=== PATIENT | female | born 1945 | race Caucasian/White ===

== ENCOUNTER 2016-03-15 14:21 | Emergency (ER) | payer OTHER ==
[2016-03-15] MEDS ORDERED: HYDROmorphONE/DILAUDID 1 MG/ML SYR IVP ONE ×2 (14:36→15:48)
[2016-03-15] MEDS ORDERED: NS 1,000 ML IV ONE (14:36)
--- NOTE | 2016-03-15 14:41 | EDPHY ---
H & P HPI/ROS: CHIEF COMPLAINT: Right-sided pain HISTORY OF PRESENT ILLNESS: Patient is a 71-year-old female with a history of chronic pain syndrome related to fibromyalgia and acute intermittent porphyria. She uses narcotics control her pain symptoms on a continuous basis including OxyContin, oxycodone and Dilaudid. The last few weeks she moved into a new apartment at [facility] that is at the end of the row and is loud, cold and does not have a hot water currently. She states that the transition has been very difficult for her in that she is experiencing an exacerbation of her chronic symptoms. She states that she has pain in her right lower quadrant that then radiates through her entire right-sided body including or arm, leg and head. She has a history of appendectomy. This is typical of her chronic pain syndrome. She states that her typical pain medication is not working. She has not had any weakness or numbness. She has not had a fever. She has not suffered any trauma. She was given fentanyl and Zofran by EMS and states that her pain went from an 8 to a 4. She states that typically when this happens she is able to go home after receiving IV fluids and pain medication in the emergency department. She is hopeful that this will happen today. REVIEW OF SYSTEMS: Constitutional: denies: chills, fever, recent illness, recent injury EENTM: denies: blurred vision, double vision, nose congestion Respiratory: denies: cough, shortness of breath Cardiac: denies: chest pain, irregular heart rate, lightheadedness, palpitations Gastrointestinal/Abdominal: denies: abdominal pain, diarrhea, nausea, vomiting, blood streaked stools Genitourinary: denies: dysuria, frequency, hematuria, pain Musculoskeletal: See HPI Skin: denies: lesions, rash, jaundice, bruising Neurological: denies: headache, numbness, paresthesia, tingling, dizziness, weakness Hematologic/Lymphatic: denies: blood clots, easy bleeding, easy bruising Immunologic/allergic: denies: HIV/AIDS, transplant EXAM: GENERAL: Well-appearing, well-nourished and in no acute distress. HEAD: Atraumatic, normocephalic. EYES: Pupils equal round and reactive to light, extraocular movements intact, sclera anicteric, conjunctiva are normal. ENT: TMs normal, nares patent, oropharynx clear without exudates. Moist mucous membranes. NECK: Normal range of motion, supple without lymphadenopathy or JVD. LUNGS: Breath sounds clear to auscultation bilaterally and equal. No wheezes rales or rhonchi. HEART: Regular rate and rhythm without murmurs, rubs or gallops. ABDOMEN: Soft, nontender, normoactive bowel sounds. No guarding, no rebound. No masses appreciated. BACK: No CVA tenderness, no spinal tenderness, step-offs or deformities EXTREMITIES: Normal range of motion, no pitting or edema. No clubbing or cyanosis. NEUROLOGICAL: Cranial nerves II through XII grossly intact. Normal speech, normal gait. 5/5 strength, normal movement in all extremities, normal sensation PSYCH: Normal mood, normal affect. SKIN: Warm, dry, normal turgor, no visible rashes or lesions. Source: Patient, EMS, Old records Exam Limitations: No limitations - Personal History Tetanus Vaccine Date: <10 years as of Jun 2014 - Medical/Surgical History Hx Asthma: No Hx Chronic Respiratory Disease: No Hx Diabetes: No Hx Cardiac Disease: No Hx Renal Disease: No Hx Cirrhosis: No Hx Alcoholism: No Hx HIV/AIDS: No Hx Splenectomy or Spleen Trauma: No Other PMH: fibromyalgia, appy, tonsilectomy, tubal ligation, sebaceous cyst removed, HTN, retinal bleeding rt eye, TIA vs CVA, porphyria with neuropathy - Family History Significant Family History: Hypertension - Social History Smoking Status: Former smoker Alcohol Use: Sober Drug Use: None Constitutional: Initial Vital Signs Temperature (C) 36.8 C 03/15/16 14:21 Heart Rate 78 03/15/16 14:21 Respiratory Rate 16 03/15/16 14:21 Blood Pressure 138/87 H 03/15/16 14:21 O2 Sat (%) 95 03/15/16 14:21 O2 Delivery Mode Nasal Cannula O2 (L/minute) 2 Allergies/Adverse Reactions: aspirin Allergy (Verified 07/27/15 10:59) Barbiturates Allergy (Verified 07/27/15 10:59) fluoxetine HCl [From Prozac] Allergy (Verified 07/27/15 10:59) ibuprofen Allergy (Verified 09/09/15 12:24) lisinopril Allergy (Verified 07/27/15 10:59) penicillin V potassium [From Pen-Vee K] Allergy (Verified 09/09/15 14:47) Hives Sulfa (Sulfonamide Antibiotics) Allergy (Verified 07/27/15 10:59) ERTHROMYCIN Allergy (Uncoded 07/27/15 10:59) WINE Allergy (Uncoded 07/27/15 10:59) Home Medications: Medication Instructions Recorded Verapamil [Calan 120MG (*)] 360 mg PO DAILY@17 07/24/10 Multivitamins [Multivitamin (*)] 1 each PO DAILY 07/23/13 oxyCODONE CR [Oxycontin] 20 mg PO BID 07/23/13 Promethazine HCl [Phenergan 25mg 25 mg PO Q6 PRN 06/29/14 (*)] HYDROmorphone HCL [Dilaudid 4 mg 8 mg PO DAILY PRN 03/25/15 (*)] Pregabalin [Lyrica 50mg (*)] 50 mg PO Q2D@22 07/27/15 Acetaminophen [Tylenol ES 500 mg 1,000 mg PO DAILY PRN 09/02/15 (*)] Ascorbic Acid [Vitamin C 500 mg 500 mg PO DAILY 09/02/15 (*)] Dexlansoprazole [Dexilant] 60 mg PO DAILY 09/02/15 Fluticasone Nasal [Flonase Nasal 1 sprays [place] HS 09/02/15 [place]] Herbals/Supplements -Info Only 1 ea PO DAILY 09/02/15 oxyCODONE IR [Oxycodone Ir (*)] 30 mg PO QID PRN 09/02/15 Medical Decision Making ED Course/Re-evaluation: 3:45 p.m. patient states that her pain continues. It has now flipped over to the left side of her entire body. She states that it sometimes plays this game . I will treat her with more Dilaudid and Phenergan which she states usually seem to help. 6:15 p.m. the patient feels completely better. She wishes to go home and declines further workup or testing at this time. She declines prescriptions. We discussed indications for returning. Differential Diagnosis: Partial list of the Differential diagnosis considered include but were not limited to; fibromyalgia, porphyria, anxiety and although unlikely based on the history and physical exam, I also considered electrolyte abnormality, infection, CVA, meningitis. I discussed these differential diagnoses and the plan with the patient as well as the usual and expected course. The patient understands that the diagnosis is provisional and that in medicine we are not always correct and that further workup is often warranted. Usual and customary warnings were given. All of the patient's questions were answered. The patient was instructed to return to the emergency department should the symptoms at all worsen or return, otherwise to followup with the physician as we discussed. - Data Points Laboratory Results: Laboratory Results 03/15/16 14:31 03/15/16 14:31 03/15/16 14:31 WBC 8.25 10^3/uL (3.80-9.50) RBC 5.00 10^6/uL (4.18-5.33) Hgb 14.7 g/dL (12.6-16.3) Hct 43.7 % (38.0-47.0) MCV 87.4 fL (81.5-99.8) MCH 29.4 pg (27.9-34.1) MCHC 33.6 g/dL (32.4-36.7) RDW 12.6 % (11.5-15.2) Plt Count 227 10^3/uL (150-400) MPV 12.8 H fL (8.7-11.7) Neut % (Auto) 41.3 % (39.3-74.2) Lymph % (Auto) 46.8 H % (15.0-45.0) Ogle % (Auto) 6.7 % (4.5-13.0) Eos % (Auto) 4.7 % (0.6-7.6) Baso % (Auto) 0.4 % (0.3-1.7) Nucleat RBC Rel Count 0.0 % (0.0-0.2) Absolute Neuts (auto) 3.41 10^3/uL (1.70-6.50) Absolute Lymphs (auto) 3.86 H 10^3/uL (1.00-3.00) Absolute Monos (auto) 0.55 10^3/uL (0.30-0.80) Absolute Eos (auto) 0.39 10^3/uL (0.03-0.40) Absolute Basos (auto) 0.03 10^3/uL (0.02-0.10) Absolute Nucleated RBC 0.00 10^3/uL (0-0.01) Immature Gran % 0.1 % (0.0-1.1) Immature Gran # 0.01 10^3/uL (0.00-0.10) Sodium 141 mEq/L (134-144) Potassium 4.3 mEq/L (3.5-5.2) Chloride 102 mEq/L (97-110) Carbon Dioxide 27 mEq/l (22-31) Anion Gap 12 mEq/L (8-16) BUN 27 H mg/dL (7-23) Creatinine 1.3 H mg/dL (0.6-1.0) Estimated GFR 41 Glucose 89 mg/dL (70-100) Calcium 9.1 mg/dL (8.5-10.4) Total Bilirubin 0.4 mg/dL (0.1-1.4) Conjugated Bilirubin 0.4 mg/dL (0.0-0.5) Unconjugated Bilirubin 0.0 mg/dL (0.0-1.1) AST 31 IU/L (14-46) ALT 31 IU/L (9-52) Alkaline Phosphatase 148 H IU/L (38-126) Total Protein 6.6 g/dL (6.3-8.2) Albumin 4.0 g/dL (3.5-5.0) Lipase 147.0 IU/L (23-300) Medications Given: Discontinued Medications Hydromorphone HCl (Dilaudid) 1 mg IVP EDNOW ONE Stop: 03/15/16 14:37 Last Admin: 03/15/16 14:59 Dose: 1 mg Hydromorphone HCl (Dilaudid) 1 mg IVP EDNOW ONE Stop: 03/15/16 15:49 Last Admin: 03/15/16 15:55 Dose: 1 mg Sodium Chloride (Ns) 1,000 mls @ 0 mls/hr IV ONCE ONE PRN Reason: Wide Open Stop: 03/15/16 14:37 Last Admin: 03/15/16 14:59 Dose: 1,000 mls Promethazine HCl (Phenergan Injection) 25 mg IVP EDNOW ONE Stop: 03/15/16 15:49 Last Admin: 03/15/16 15:55 Dose: 25 mg Departure - Departure Disposition: Home, Routine, Self-Care Clinical Impression: Fibromyalgia Porphyria Qualifiers: Porphyria type: acute intermittent Qualifier Code: (E80.21) Acute intermittent (hepatic) porphyria Condition: Fair Instructions: Fibromyalgia (ED), Acute Porphyria (ED) Referrals: Mariaa Negrete MD [Primary Care Provider] - As per Instructions
[2016-03-15 14:46] LABS: % IMMATURE GRANULYOCYTES 0.1 % (0.0-1.1); ABSOLUTE IMMATURE GRANULOCYTES 0.01 10^3/uL (0.00-0.10); ADD DIFF? NO; ADD MORPH? NO; ADD SCAN? NO; ATYPICAL LYMPHOCYTE FLAG 0 (0-99); FRAGMENT RBC FLAG 0 (0-99); HEMATOCRIT 43.7 % (38.0-47.0); HEMOGLOBIN 14.7 g/dL (12.6-16.3); LEFT SHIFT FLG 0 (0-99); LIPEMIA HEMOLYSIS FLAG 80 (0-99); MEAN CELL HEMOGLOBIN 29.4 pg (27.9-34.1); MEAN CELL HEMOGLOBIN CONCENTR. 33.6 g/dL (32.4-36.7); MEAN CELL VOLUME 87.4 fL (81.5-99.8); MEAN PLATELET VOLUME 12.8 fL (8.7-11.7); PLATELET CLUMPS FLAG 0 (0-99); PLATELET COUNT 227 10^3/uL (150-400); RED CELL DISTRIBUTION WIDTH 12.6 % (11.5-15.2)
[2016-03-15 14:51] LABS: ALANINE AMINOTRANSFERASE 31 IU/L (9-52); ALKALINE PHOSPHATASE 148 IU/L (38-126); ANION GAP 12 mEq/L (8-16); ASPARTATE AMINOTRANSFERASE 31 IU/L (14-46); BILIRUBIN,TOTAL 0.4 mg/dL (0.1-1.4); BILIRUBIN-CONJUGATED 0.4 mg/dL (0.0-0.5); CALCIUM 9.1 mg/dL (8.5-10.4); CARBON DIOXIDE 27 mEq/l (22-31); CHLORIDE 102 mEq/L (97-110); CREATININE 1.3 mg/dL (0.6-1.0); GLOMERULAR FILTRATION RATE 41; GLUCOSE 89 mg/dL (70-100); POTASSIUM 4.3 mEq/L (3.5-5.2); SODIUM 141 mEq/L (134-144); TOTAL PROTEIN 6.6 g/dL (6.3-8.2)
[2016-03-15] MEDS ORDERED: PROMETHAZINE HCL 25 MG/ML VIAL IVP ONE (15:48)
[2016-03-15 17:06] VITALS: RESP 16
[2016-03-15 18:30] VITALS: BP 136/75; PULSE 70; TEMP 97.9; O2SAT 96
[2016-03-15 18:51] LABS: COLOR PALE YELLOW; LEUKOCYTE ESTERASE,URINE NEGATIVE (NEGATIVE); NITRITE,URINE NEGATIVE (NEGATIVE)
== END 2016-03-15 19:17 | disposition home or self-care (01) ==
LOC: EDUNIT#
DX: M79.7 Fibromyalgia (principal); E80.21 Acute intermittent (hepatic) porphyria; I10 Essential (primary) hypertension; Z87.891 Personal history of nicotine dependence
CPT/HCPCS: 96361; 96374; 96375; 96376; 99284; J1170; J2550

== ENCOUNTER → 2016-05-13 | Outpatient (CLI) | payer OTHER | LOC: BMCIMAGING 09:55 | PROVIDERS: ATTEND Registered Nurse | DX: M25.811 Other specified joint disorders, right shoulder (principal); M25.812 Other specified joint disorders, left shoulder ==

== ENCOUNTER → 2016-06-29 | Outpatient (CLI) | payer OTHER, MEDICAID | LOC: BMCIMAGING 13:34 | PROVIDERS: ATTEND Physician Assistant | DX: M25.561 Pain in right knee (principal); M25.562 Pain in left knee ==

== ENCOUNTER → 2016-07-13 | Outpatient (CLI) | payer OTHER, MEDICAID | LOC: FIMAGING 07:45 | PROVIDERS: ATTEND Physician Assistant | DX: M23.311 Other meniscus derangements, anterior horn of medial meniscus, right knee (principal); M22.41 Chondromalacia patellae, right knee; M25.461 Effusion, right knee ==

== ENCOUNTER → 2016-11-03 | Outpatient (CLI) | payer OTHER, MEDICAID ==
[~2016-11-03] MED LIST: REGADENOSON 0.4 MG/5 ML SYR IVP ONE
--- NOTE | 2016-11-03 15:11 | CPR ---
[f rep st] NONINVASIVE CARDIAC PROCEDURE REPORT DATE OF PROCEDURE: 11/03/2016 PROCEDURE: Nuclear Lexiscan stress test. This is an outpatient procedure. ORDERING PHYSICIAN: Mariaa Negrete MD REASON FOR TEST: Exertional chest pain. REST PORTION: Resting EKG shows a sinus rhythm with inferior changes. No other ischemic changes noted. Resting rate is 74, resting blood pressure 144/90 , oxygen saturation 98%. STRESS PORTION: Lexiscan was injected rapidly, followed by saline flush. Cardiolite was then injected, followed by saline flush. She did experience chest tightness, shortness of breath which progressed to jaw pain. There were no EKG changes. Blood pressure 138/80, peak heart rate 95, oxygen saturation 99 %. Caffeine was given, which did start to relieve the discomfort. RECOVERY: Blood pressure 142/80, heart rate 91, oxygen saturation 98%. Caffeine was continued with relief of pain. Recovery EKG is unchanged. At this time, she is stable for nuclear imaging. /[id number]/MODL MTDD
== END ==
LOC: FIMAGING 12:40
PROVIDERS: ATTEND Internal Medicine
DX: R07.89 Other chest pain (principal)
CPT/HCPCS: 78452; 93017; A9500; J2785

== ENCOUNTER → 2016-12-10 | Outpatient (CLI) | payer OTHER, MEDICAID | LOC: FCPNEURO 23:22 | PROVIDERS: ATTEND Internal Medicine Sleep Medicine | DX: G47.33 Obstructive sleep apnea (adult) (pediatric) (principal); G47.31 Primary central sleep apnea ==

== ENCOUNTER 2017-01-03 07:50 | Observation (INO) | payer OTHER, MEDICAID ==
--- NOTE | 2017-01-03 07:59 | EDPHY ---
H & P Time Seen by Provider: 01/03/17 07:50 HPI/ROS: CHIEF COMPLAINT: Right arm weakness HISTORY OF PRESENT ILLNESS: Patient arrives by EMS as a stroke alert. She has a history of porphyria since 21 years old, and had symptoms similar to this in the past with porphyria exacerbation. She was last known to have normal right arm strength at midnight. At 1:00 a.m. and noticed severe pain in her right arm which is typical of porphyria exacerbation, and by 2:00 a.m. she had significant weakness. She took additional oral Dilaudid called ambulance who brought her in as a stroke alert because of right arm weakness and drift. Symptoms are severe. Associated with right leg weakness. These are all typical of her porphyria exacerbations. REVIEW OF SYSTEMS: Eye: no change in vision ENT: no sore throat Cardiac: no chest pain or syncope Pulmonary: no cough or SOB Abdomen: No vomiting or diarrhea, having a little bit of abdominal cramping which again is typical for porphyria exacerbation. Musculoskeletal: HPI, no neck pain Skin: no rash Neuro: no headache Constitutional: no fever : no urinary symptoms A comprehensive 10 point review of systems is otherwise negative aside from elements mentioned in the history of present illness. PAST MEDICAL HISTORY: Porphyria, hypertension, home oxygen at night, fibromyalgia Family history: Positive for porphyria. Social history: Primary care is Mariaa Negrete at [facility] General Appearance: Alert and conversant, cooperative. Eyes: No scleral icterus. ENT, Mouth: Normal mucous membranes. Respiratory: Normal respiratory effort, breath sounds equal, lungs are clear to auscultation. Cardiovascular: Regular rate and rhythm. Radial pulse present in the right wrist. Gastrointestinal: Abdomen is soft and non tender. Neurological: Alert and oriented x3. Normally conversant. Face symmetric. Right arm weakness. She can bend her left knee and raise her left heel off the bed but can't lift her right heel off the bed. She can only bend her right knee couple of degrees but she can move the toes of both feet. Normal sensation in both feet and both hands. Skin: Warm and dry, no rashes. Musculoskeletal: No peripheral edema and no joint swelling. No spine tenderness. Psychiatric: Not agitated. Emergency Department course/MDM: CT shows no hemorrhage or subacute stroke per Dr. Marsella at 8:22 a.m. Patient presents with almost 8 hours since last known normal at midnight. She is not a candidate for IV Activase even if this were a diagnosis of ischemic stroke. CT angiography is immediately performed. She will need to be admitted to the hospital for further evaluation and treatment, but I think the most likely thing is typical exacerbation of her porphyria. Adriano 846am for Tien Parada will consult. Dilaudid 1 mg IV for pain. 900: negative for large vessel occlusion on CTA per [place]. Parada in ED to see patient. Smoking Status: Former smoker Constitutional: Initial Vital Signs Temperature (C) 36.6 C 01/03/17 08:12 Heart Rate 78 01/03/17 08:12 Respiratory Rate 18 01/03/17 08:12 Blood Pressure 161/87 H 01/03/17 08:12 O2 Sat (%) 95 01/03/17 08:12 O2 Delivery Mode Room Air Allergies/Adverse Reactions: aspirin Allergy (Verified 07/27/15 10:59) Barbiturates Allergy (Verified 07/27/15 10:59) fluoxetine HCl [From Prozac] Allergy (Verified 07/27/15 10:59) ibuprofen Allergy (Verified 09/09/15 12:24) lisinopril Allergy (Verified 07/27/15 10:59) penicillin V potassium [From Pen-Vee K] Allergy (Verified 09/09/15 14:47) Hives Sulfa (Sulfonamide Antibiotics) Allergy (Verified 07/27/15 10:59) ERTHROMYCIN Allergy (Uncoded 07/27/15 10:59) WINE Allergy (Uncoded 07/27/15 10:59) Home Medications: Medication Instructions Recorded Verapamil [Calan 120MG (*)] 360 mg PO DAILY@07/24/10 Multivitamins [Multivitamin (*)] 1 each PO DAILY 07/23/13 oxyCODONE CR [Oxycontin] 20 mg PO BID 07/23/13 Promethazine HCl [Phenergan 25mg 25 mg PO Q6 PRN 06/29/14 (*)] HYDROmorphone HCL [Dilaudid 4 mg 8 mg PO DAILY PRN 03/25/15 (*)] Pregabalin [Lyrica 50mg (*)] 50 mg PO Q2D@07/27/15 Acetaminophen [Tylenol ES 500 mg 1,000 mg PO DAILY PRN 09/02/15 (*)] Ascorbic Acid [Vitamin C 500 mg 500 mg PO DAILY 09/02/15 (*)] Dexlansoprazole [Dexilant] 60 mg PO DAILY 09/02/15 Fluticasone Nasal [Flonase Nasal 1 sprays [place]ARE HS 09/02/15 [place]] Herbals/Supplements -Info Only 1 ea PO DAILY 09/02/15 oxyCODONE IR [Oxycodone Ir (*)] 30 mg PO QID PRN 09/02/15 Medical Decision Making - Diagnostics EKG Interpretation: 12-lead EKG interpreted by me; official reading is in trace master. My interpretation is sinus rhythm rate 77 with inferior Q-waves noted. Imaging Results: Imaging Impressions Chest X-Ray 01/03/17 07:58 Impression: Stable and normal. Head CT 01/03/17 07:58 Impression: 1. No acute abnormalities. 2. Left subinsular remote infarct. 3. Mild chronic small vessel ischemic changes in the supratentorial white matter. Dr. Peralta discussed these findings by telephone with YIN ALFORD on 2016 at 0822 hours. - Data Points Laboratory Results: Laboratory Results 01/03/17 08:00 01/03/17 01/03/17 08:00 07:55 POC Hgb 13.9 gm/dL gm/dL (12.6-16.3) POC Hct 41 % % (38-47) POC Sodium 143 mEq/L mEq/L (134-144) Sodium 143 mEq/L mEq/L (134-144) POC Potassium 3.4 mEq/L mEq/L (3.3-5.0) Potassium 3.5 mEq/L mEq/L (3.5-5.2) POC Chloride 103 mEq/L mEq/L (97-110) Chloride 103 mEq/L mEq/L (97-110) Carbon Dioxide 26 mEq/l mEq/l (22-31) Anion Gap 14 mEq/L mEq/L (8-16) POC BUN 23 mg/dL mg/dL (7-23) BUN 23 mg/dL mg/dL (7-23) Creatinine 1.1 mg/dL H mg/dL (0.6-1.0) POC Creatinine 1.2 mg/dL H mg/dL (0.6-1.0) Estimated GFR 49 Glucose 110 mg/dL H mg/dL (70-100) POC Glucose 106 mg/dL H mg/dL (70-100) Calcium 9.0 mg/dL mg/dL (8.5-10.4) Troponin I < 0.012 ng/mL ng/mL (0.000-0.034) Medications Given: Discontinued Medications Hydromorphone HCl (Dilaudid) 1 mg IVP EDNOW ONE Stop: 01/03/17 08:40 Last Admin: 01/03/17 08:45 Dose: 1 mg Point of Care Test Results: 01/03/17 07:55 POC Sodium 143 POC Potassium 3.4 POC Chloride 103 POC BUN 23 POC Creatinine 1.2 H POC Glucose 106 H Departure - Departure Disposition: [facility] Inpatient Acute Clinical Impression: Right arm weakness, Right leg weakness Porphyria Qualifiers: Porphyria type: unspecified porphyria Qualified Code(s): E80.20 - Unspecified porphyria Condition: Good
[2017-01-03] MEDS ORDERED: IOPAMIDOL (ISOVUE 370) 100 ML BTL IV ONE (08:00)
--- NOTE | 2017-01-03 08:35 | CPEKG ---
Heart Rate: 77 RR Interval: 779 P-R Interval: 168 QRSD Interval: 90 QT Interval: 404 QTC Interval: 458 P [place]: 80 QRS [place]: 11 T Wave [place]: 54 EKG Severity - BORDERLINE ECG - EKG Impression: SINUS RHYTHM EKG Impression: BORDERLINE INFERIOR Q WAVES Electronically Signed By: Colton Falcon 03-Jan-2017 08:36:51
--- NOTE | 2017-01-03 08:35 | CPEKG ---
Heart Rate: 77 RR Interval: 779 P-R Interval: 168 QRSD Interval: 90 QT Interval: 404 QTC Interval: 458 P [place]: 80 QRS [place]: 11 T Wave [place]: 54 EKG Severity - BORDERLINE ECG - EKG Impression: SINUS RHYTHM EKG Impression: BORDERLINE INFERIOR Q WAVES Electronically Signed By: Colton Falcon 03-Jan-2017 08:36:51
[2017-01-03] MEDS ORDERED: HYDROmorphONE/DILAUDID 1 MG/ML INJ IVP ONE (08:39)
[2017-01-03] MEDS ORDERED: ACETAMINOPHEN 325 MG TAB PO PRN (09:03)
[2017-01-03] MEDS ORDERED: HYDROmorphONE/DILAUDID 1 MG/ML INJ IVP PRN (09:03)
[2017-01-03] MEDS ORDERED: ONDANSETRON DISINTEGRATING 4 MG TAB PO PRN (09:03)
[2017-01-03] MEDS ORDERED: ONDANSETRON 4 MG/2 ML VIAL IVP PRN (09:03)
[2017-01-03] MEDS ORDERED: NS 1,000 ML IV ONE (09:03)
[2017-01-03 09:15] LABS: PLATELET COUNT 182 10^3/uL (150-400)
[2017-01-03 10:26] LABS: INR 1.03 (0.83-1.16); PROTIME(PATIENT) 13.4 SEC (12.0-15.0)
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
[2017-01-03] MEDS: HYDROmorphone HCL/NS/PF 0.4 MG/2 ML SYR IVP PRN ×4 (11:37→21:06)
[2017-01-03] MEDS ORDERED: PROMETHAZINE HCL 25 MG TAB PO PRN (11:46)
[2017-01-03] MEDS ORDERED: SYSTANE ULTRA EACHEYE PRN (11:46)
[2017-01-03] MEDS ORDERED: EYE DRP EACHEYE PRN (11:46)
[2017-01-03] MEDS ORDERED: D50W 25 GM/50 ML SYR IVP SCH (12:00)
[2017-01-03] MEDS: D50W 25 GM/50 ML VIAL IVP SCH ×2 (12:52→18:04)
[2017-01-03] MEDS: D5W NS 1,000 ML IV SCH (12:52)
[2017-01-03] MEDS ORDERED: ALTEPLASE 2 MG VIAL IVP PRN (14:06)
[2017-01-03] MEDS ORDERED: CALCIUM CARBONATE 500 MG CHEWABLE TAB PO PRN (14:07)
--- NOTE | 2017-01-03 15:10 | GCON ---
[f rep st] CONSULTATION NEUROLOGY CONSULT REFERRING PHYSICIAN: Lexi Parada MD CHIEF COMPLAINT: Right-sided pain and weakness. 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 Over the last ensuing 50 years or so, she has had multiple attacks per year that are fairly stereotyped. They always begin with abdominal pain and then she typically gets right-sided pain in the face, arm, and leg which progresses to motor dysfunction. On rare occasion, she will get the identical syndrome starting with abdominal pain, but having allodynia and weakness on the left side. She has right-sided symptoms the vast majority of time. She has 4 to 5 of these events per year. Last night, she began with a stereotyped episode of abdominal pain progressing to hypersensitivity on the right side, then spontaneous pain, and finally decreased motor function. She is able to typically self treat these at home, sometimes with increased carbohydrate, but if it gets more significant, she comes into the hospital for IV fluids, IV pain medication, and intravenous glucose, which resolves the symptoms in about 24 hours. In the emergency department, she had a head CT and a CTA of the head and neck. I reviewed these studies. The head CT shows a chronic possible area of infarct in the left subinsular region. She states she has had a stroke many years ago. CT angiography of the head and neck showed no significant vascular occlusion. Her symptoms are now resolving with IV Dilaudid, fluids, and she will be getting glucose shortly. Her labs do not show a white count. She has some chronic renal insufficiency. Creatinine is 1.1 to 1.2. For past medical history, social history, family history, home medications, and allergies, see Dr. Parada's history and physical. PHYSICAL EXAMINATION: VITAL SIGNS: Blood pressure is 131/98, temperature is 36.6, heart rate 77, respirations 20. GENERAL: In no acute distress, very pleasant. NEUROLOGIC: Higher mental function is normal. No aphasia or cognitive abnormalities. Bulbar exam reveals some electrical like paresthesias when I touch the right side of her face in a lower motor neuron distribution. Otherwise, there are no other cranial nerve abnormalities. On motor exam, there were inconsistent findings. Her motor exam appeared to fluctuate with effort and/or pain. She had difficulty activating the right arm and right leg. However, at other times she could activate fairly briskly. Overall, there was some right-sided motor dysfunction. On sensory exam, she states there are some subjective paresthesias and allodynia on the right side, which is rapidly improving now. Coordination is normal on the left side. IMPRESSION/PLAN: 1. Outside diagnosis of porphyria. 2. Presumed acute porphyria attack with neurologic symptoms. The patient states she has had approximately 150 + stereotyped episodes identical to the presenting one today. She has had extensive workups in the past including neuroimaging which shows no significant abnormalities with these events. She is here mainly for IV fluids, IV pain medication, and glucose, which we are treating her with. She states she will be better in 24 hours. Certainly, her history would be consistent with an acute attack of porphyria with abdominal pain and neurologic symptoms. The neurologic symptoms tend to be an acute peripheral neuropathy type mechanism based on the literature review. I understand that Internal Medicine has spoken to Hematology if there are any other treatments indicated for this condition. I am reassured by her negative CT angiography of the head and neck and negative head CT in terms of acute findings. There was no hemorrhage or other acute findings. I think we can proceed with the treatment plan as described above and hold off on further testing now and observe her for resolution of these symptoms as she typically does. She does not wish to have any further neurologic testing at this point as well. I think that is reasonable based on the patient provided history. Thank you for this consultation. We will continue to follow this patient as needed. Please do not hesitate to call with any questions or changes in neurologic status. seventy total minutes floor time today reviewing records, imaging, and direct counseling with the patient and coordination of care. /[id number]/MODL MTDD
[2017-01-03] MEDS ORDERED: FLUTICASONE NASAL 120 SPRAYS/16 GM MDI EACHNARE SCH (21:00)
[2017-01-03] MEDS ORDERED: PROMETHAZINE HCL 25 MG TAB PO SCH (21:00)
[2017-01-04] MEDS: D50W 25 GM/50 ML VIAL IVP SCH ×2 (00:02→05:20)
[2017-01-04] MEDS: D5W NS 1,000 ML IV SCH (00:02)
[2017-01-04] MEDS: HYDROmorphone HCL/NS/PF 0.4 MG/2 ML SYR IVP PRN ×2 (00:17→05:10)
[2017-01-04] MEDS ORDERED: NON-FORMULARY NEW DRUG (Esomeprazole Magnesium [Nexium] 20 MG) PO SCH (05:00)
[2017-01-04] MEDS ORDERED: PANTOPRAZOLE SODIUM 40 MG TAB PO SCH (05:00)
[2017-01-04] MEDS ORDERED: VERAPAMIL 120 MG TAB PO SCH (05:00)
[2017-01-04 05:06] LABS: PLATELET COUNT 170 10^3/uL (150-400)
[2017-01-04 07:52] VITALS: BP 107/74; PULSE 66; RESP 14; TEMP 98.2; O2SAT 90
[2017-01-04] MEDS ORDERED: Herbals/Supplements -Info Only PO SCH (09:00)
[2017-01-04] MEDS ORDERED: CYANO/VITAMIN B12 1000 MCG TAB PO SCH (09:00)
[2017-01-04] MEDS ORDERED: MULTIVITAMINS 1 EACH TAB PO SCH (09:00)
--- NOTE | 2017-01-04 12:00 | ASDISCHSUM ---
Discharge Information Plan Status:Home with No Needs Medically Cleared to Leave: Discharge Date:01/04/2017 11:33 AM CM D/C Disposition:Home, Routine, Self-Care ADT D/C Disposition:Home, Routine, Self-Care Projected Discharge Date:01/04/2017 11:33 AM Transportation at D/C: Discharge Delay Reason: Follow-Up Date:01/04/2017 11:33 AM Discharge Slot: Final Diagnosis: Placement Information Patient Contact Information Contact Name:LATONIA Relationship:Son Address:[address] City:[facility] Phone: State/Zip Code:[place] Email: Financial Information Financial Class: Primary Plan Desc:MEDICARE OUTPATIENT Primary Plan Number:[id number] Secondary Plan Desc:MEDICAID HEALTH FIRST [employer] Secondary Plan Number:[id number] Assessment Information BC CM Progress Note CM Note CM Note Notes: Pt medically stable for d/c, no CM d/c needs identified. Date Signed: 01/04/2017 12:00 PM Electronically Signed By:GERARDO Holt Intervention Information Intervention Type:*RICHARDS-Signed Date of Service:01/04/2017 09:52 AM Patient Type:Observation Staff Member:Viky Quezada Hours: Discipline: Severity: Comment:
--- NOTE | 2017-01-04 12:00 | ASDISCHSUM ---
Discharge Information Plan Status:Home with No Needs Medically Cleared to Leave: Discharge Date:01/04/2017 11:33 AM CM D/C Disposition:Home, Routine, Self-Care ADT D/C Disposition:Home, Routine, Self-Care Projected Discharge Date:01/04/2017 11:33 AM Transportation at D/C: Discharge Delay Reason: Follow-Up Date:01/04/2017 11:33 AM Discharge Slot: Final Diagnosis: Placement Information Patient Contact Information Contact Name:LATONIA Relationship:Son Address:[address] City:[facility] Phone: State/Zip Code:[place] Email: Financial Information Financial Class: Primary Plan Desc:MEDICARE OUTPATIENT Primary Plan Number:[id number] Secondary Plan Desc:MEDICAID HEALTH 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 Date Signed: 01/04/2017 12:00 PM Electronically Signed By:GERARDO Holt Intervention Information Intervention Type:*RICHARDS-Signed Date of Service:01/04/2017 09:52 AM Patient Type:Observation Staff Member:Viky Quezada Hours: Discipline: Severity: Comment:
--- NOTE | 2017-01-04 12:00 | ASDISCHSUM ---
Discharge Information Plan Status:Home with No Needs Medically Cleared to Leave: Discharge Date:01/04/2017 11:33 AM CM D/C Disposition:Home, Routine, Self-Care ADT D/C Disposition:Home, Routine, Self-Care Projected Discharge Date:01/04/2017 11:33 AM Transportation at D/C: Discharge Delay Reason: Follow-Up Date:01/04/2017 11:33 AM Discharge Slot: Final Diagnosis: Placement Information Patient Contact Information Contact Name:LATONIA Relationship:Son Address:[address] City:[facility] Phone: State/Zip Code:[place] Email: Financial Information Financial Class: Primary Plan Desc:MEDICARE OUTPATIENT Primary Plan Number:[id number] Secondary Plan Desc: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 Date Signed: 01/04/2017 12:00 PM Electronically Signed By:GERARDO Holt Intervention Information Intervention Type:*RICHARDS-Signed Date of Service:01/04/2017 09:52 AM Patient Type:Observation Staff Member:Viky Quezada Hours: Discipline: Severity: Comment:
--- NOTE | 2017-01-04 18:58 | PDDCSUM ---
Discharge Summary Discharge Summary: DISCHARGE SUMMARY FOLLOW-UP ITEMS: Schedule outpatient follow up with primary care provider DATE OF ADMISSION: 01/03/2017 DATE OF DISCHARGE: 01/04/2017 DISCHARGE DIAGNOSES: 1. Possible acute porphyria 2. Chronic kidney disease stage III 3. Chronic hypertension 4. Chronic fibromyalgia CONSULTATIONS: Neurology by Dr. Wenceslao Chauhan PROCEDURES / IMAGING: CT angiogram of the head and neck demonstrating no stenosis CHIEF COMPLAINT: Acute hemiparesis and paresthesia SUBJECTIVE: Patient is feeling well at time discharge, her symptoms have completely resolved PHYSICAL EXAM ON DISCHARGE: Systolic blood pressure is 110, heart rate 70, afebrile overnight, satting well on room air, alert awake oriented x3, no apparent distress, pain level 0 10, cranial nerves 2-12 are intact and tested comma motor strength 5/5 bilateral upper and lower extremities, sensation intact bilaterally, bowel sounds are present, abdomen is soft nontender nondistended LABS ON DISCHARGE: LDL 72, potassium 3.7, creatinine 0.9, white blood count 6200, hemoglobin 13.2 HOSPITAL COURSE BY PROBLEM: The patient presented with acute right-sided mesha paresthesia and hemiparesis, consistent with symptoms the patient has historically experienced during which she believes are acute porphyria attacks. Although there is no objective way to confirm that this was the cause of the symptoms, the patient describes a history which is very consistent with hereditary acute intermittent porphyria - she was diagnosed around the age of 21, she underwent a urine confirmatory test , she has a strong family history including her mother, grandmother, niece. The patient was treated with IV fluids, dextrose, high carbohydrate diet, and her symptoms improved. She was seen in consultation by Neurology, and Dr. Wenceslao Chauhan did not recommend any further workup. Patient did not require any hemin infusion, and she is comfortable following up with her primary care provider for both this issue as well as her underlying chronic issues. DISCHARGE MEDICATIONS: Please see official discharge medication reconciliation sheet in chart , continue home medications without any changes. DISCHARGE INSTRUCTIONS: Please follow up with Dr. Mariaa Negrete within the next several days. TIME SPENT: Greater than 30 minutes were spent on direct patient care, as well as discharge planning and preparation.
== END 2017-01-04 11:33 | disposition home or self-care (01) ==
LOC: EDUNIT# → INTOOBSV 08:48 → F3N 11:14
PROVIDERS: ADMIT Hospitalist; ATTEND Internal Medicine
DX: G81.91 Hemiplegia, unspecified affecting right dominant side (principal); R20.2 Paresthesia of skin; N18.3 Chronic kidney disease, stage 3 (moderate); I12.9 Hypertensive chronic kidney disease with stage 1 through stage 4 chronic kidney disease, or unspecified chronic kidney disease; M79.7 Fibromyalgia; K21.9 Gastro-esophageal reflux disease without esophagitis; G47.31 Primary central sleep apnea; E66.9 Obesity, unspecified; Z68.37 Body mass index [BMI] 37.0-37.9, adult; Z86.39 Personal history of other endocrine, nutritional and metabolic disease; Z86.73 Personal history of transient ischemic attack (TIA), and cerebral infarction without residual deficits; Z83.49 Family history of other endocrine, nutritional and metabolic diseases; Z88.0 Allergy status to penicillin; Z66 Do not resuscitate
CPT/HCPCS: 70450; 70496; 70498; 71010; 92523; 93005; 96374; 97161; 99285; G0378; G8978; G8979; G8980; G8996; G8997; G8998; J1170; Q9967; 82947-QW

== ENCOUNTER 2017-02-07 10:52 | Emergency (ER) | payer OTHER, MEDICAID ==
[2017-02-07 11:01] VITALS: TEMP 98.4
--- NOTE | 2017-02-07 11:32 | CPEKG ---
Heart Rate: 71 RR Interval: 845 P-R Interval: 160 QRSD Interval: 84 QT Interval: 420 QTC Interval: 457 P [place]: 65 QRS [place]: -21 T Wave [place]: 40 EKG Severity - ABNORMAL ECG - EKG Impression: SINUS RHYTHM EKG Impression: PROBABLE LEFT ATRIAL ABNORMALITY EKG Impression: INFERIOR INFARCT, OLD Electronically Signed By: Lilliana Emmanuel 07-Feb-2017 14:38:13
[2017-02-07] MEDS ORDERED: MECLIZINE HCL 25 MG TAB PO ONE (11:40)
[2017-02-07 11:50] LABS: % IMMATURE GRANULYOCYTES 0.4 % (0.0-1.1); ABSOLUTE IMMATURE GRANULOCYTES 0.03 10^3/uL (0.00-0.10); ADD DIFF? NO; ADD MORPH? NO; ADD SCAN? NO; ATYPICAL LYMPHOCYTE FLAG 0 (0-99); FRAGMENT RBC FLAG 0 (0-99); HEMATOCRIT 44.5 % (38.0-47.0); HEMOGLOBIN 14.4 g/dL (12.6-16.3); LEFT SHIFT FLG 0 (0-99); LIPEMIA HEMOLYSIS FLAG 80 (0-99); MEAN CELL HEMOGLOBIN 28.7 pg (27.9-34.1); MEAN CELL HEMOGLOBIN CONCENTR. 32.4 g/dL (32.4-36.7); MEAN CELL VOLUME 88.8 fL (81.5-99.8); MEAN PLATELET VOLUME 11.8 fL (8.7-11.7); PLATELET CLUMPS FLAG 0 (0-99); PLATELET COUNT 235 10^3/uL (150-400); RED BLOOD CELL COUNT 5.01 10^6/uL (4.18-5.33); RED CELL DISTRIBUTION WIDTH 13.1 % (11.5-15.2)
--- NOTE | 2017-02-07 11:56 | EDPHY ---
H & P Time Seen by Provider: 02/07/17 11:37 HPI/ROS: CHIEF COMPLAINT: Vertigo HISTORY OF PRESENT ILLNESS: 71-year-old female with a history of porphyria presents with vertigo. She awoke at 4:00 a.m. yesterday morning, with nausea and 1 episode of vomiting. When she tried to get out of bed, she had a severe rooming spinning sensation and was unable to walk. The spinning sensation lasted all day yesterday, worsened with head movement. She was able to read yesterday with minimal symptoms. This morning she woke up with persistent vertigo. No vomiting today. No recent head or neck trauma. She has a history of chronic right lower extremity weakness secondary to acute porphyria. Recent admission earlier this month for porphyria. CTA of the head and neck during that admission were normal. REVIEW OF SYSTEMS: Constitutional: No fever, no chills Eyes: No visual changes ENT: No sore throat Respiratory: No cough, no shortness of breath Cardiac: No chest pain Gastrointestinal: no abdominal pain Genitourinary: no dysuria Musculoskeletal: No leg pain or swelling Skin: No rash Neurological: No headache, no numbness Psychiatric: No depression Past Medical/Surgical History: Porphyria Right sided weakness Hypertension CVA Social History: Uses a walker to ambulate. Smoking Status: Former smoker Physical Exam: General Appearance: Alert, pleasant Eyes: Pupils equal and round, no conjunctival pallor or injection, horizontal nystagmus ENT, Mouth: Mucous membranes moist Neck: Normal inspection, no bruit Respiratory: Lungs are clear to auscultation Cardiovascular: Regular rate and rhythm Gastrointestinal: Abdomen is soft and nontender Neurological: Alert, oriented x3, cranial nerves II through XII intact, right- sided weakness, sensory intact to light touch, gait not assessed Skin: Warm and dry, no rash Extremities: Nontender, no pedal edema Psychiatric: Mood and affect normal Constitutional: Initial Vital Signs Temperature (C) 36.9 C 02/07/17 10:58 Heart Rate 74 02/07/17 10:58 Respiratory Rate 16 02/07/17 10:58 Blood Pressure 146/90 H 02/07/17 10:58 O2 Sat (%) 94 02/07/17 10:58 O2 Delivery Mode Room Air Allergies/Adverse Reactions: alcohol [wine] Allergy (Severe, Verified 02/07/17 10:56) Swelling/neck,face,throat/ Hives Barbiturates Allergy (Severe, Verified 02/07/17 10:56) Other-Enter Comments fluoxetine HCl [From Prozac] Allergy (Severe, Verified 02/07/17 10:56) Hallucinations aspirin Allergy (Verified 02/07/17 10:56) GI Upset erythromycin base Allergy (Verified 02/07/17 10:56) Other-Enter Comments ibuprofen Allergy (Verified 02/07/17 10:56) GI Upset latex Allergy (Verified 02/07/17 10:56) Rash/Hives lisinopril Allergy (Verified 02/07/17 10:56) Unknown penicillin V potassium [From Pen-Vee K] Allergy (Verified 02/07/17 10:56) Hives Sulfa (Sulfonamide Antibiotics) Allergy (Verified 02/07/17 10:56) Unknown Home Medications: Medication Instructions Recorded Verapamil [Calan 120MG (*)] 360 mg PO DAILY@07/24/10 Multivitamins [Multivitamin (*)] 1 each PO DAILY 07/23/13 Promethazine HCl [Phenergan 25mg 25 mg PO Q6 PRN 06/29/14 (*)] Acetaminophen [Tylenol ES 500 mg 1,000 mg PO DAILY PRN 09/02/15 (*)] Fluticasone Nasal [Flonase Nasal 1 sprays EACHNARE 09/02/15 [place]] Herbals/Supplements -Info Only 1 ea PO DAILY 09/02/15 Cyanocobalamin [Vitamin B12 (*)] 1,000 mcg PO DAILY 01/03/17 Esomeprazole Magnesium [Nexium] 20 mg PO DAILY@01/03/17 HYDROmorphone HCL [Dilaudid 4 mg 4 mg PO DAILY PRN 01/03/17 (*)] Hydrochlorothiazide [HCTZ (*)] 25 mg PO DAILY@01/03/17 Promethazine HCl [Phenergan 25mg 12.5 mg PO 01/03/17 (*)] Propylene Glycol/Peg 400 [Systane 1 drop EACHEYE Q2 PRN 01/03/17 Ultra 0.4-0.3% Eye Drp] oxyCODONE HCL [Oxycontin] 40 mg PO BID@01/03/17 oxyCODONE IR [Oxycodone Ir (*)] 10 mg PO Q6 PRN 01/03/17 Meclizine HCl [Meclizine HCl 25 mg 25 mg PO TID PRN #15 tab 02/07/17 (RX,OTC)] Nucynta 02/07/17 Medical Decision Making ED Course/Re-evaluation: This patient presents with vertigo, most likely peripheral in etiology. She has a normal neurologic and exam and no concerning signs or symptoms for central etiology of vertigo. Meclizine 25 mg orally given. Feels much better after meclizine and is ready for discharge home. Neurologic exam remains normal. Able to walk with a steady gait using her walker. I feel that she is safe and stable for discharge. Differential Diagnosis: Dizziness including but not limited to peripheral and central causes of vertigo , orthostatic causes including dehydration, and blood loss. - Data Points Laboratory Results: Laboratory Results 02/07/17 11:25 02/07/17 11:25 Medications Given: Discontinued Medications Meclizine HCl (Meclizine Hcl) 25 mg PO EDNOW ONE Stop: 02/07/17 11:41 Last Admin: 02/07/17 11:52 Dose: 25 mg Departure - Departure Disposition: Home, Routine, Self-Care Clinical Impression: Vertigo Condition: Good Instructions: Vertigo (ED) Additional Instructions: Take meclizine as needed for vertigo. Return for worsening symptoms or any concerns. Referrals: Mariaa Negrete MD [Primary Care Provider] - 1-2 days without fail Prescriptions: Meclizine HCl [Meclizine HCl 25 mg (RX,OTC)] 25 mg PO TID PRN #15 tab PRN Reason: Dizziness
[2017-02-07 12:03] LABS: ANION GAP 16 mEq/L (8-16); CALCIUM 9.8 mg/dL (8.5-10.4); CARBON DIOXIDE 27 mEq/l (22-31); CHLORIDE 103 mEq/L (97-110); CREATININE 1.1 mg/dL (0.6-1.0); GLOMERULAR FILTRATION RATE 49; GLUCOSE 99 mg/dL (70-100); POTASSIUM 4.3 mEq/L (3.5-5.2); SODIUM 146 mEq/L (134-144)
[2017-02-07 13:01] VITALS: BP 159/93; PULSE 73; RESP 15; O2SAT 92
== END 2017-02-07 13:11 | disposition home or self-care (01) ==
DX: R42 Dizziness and giddiness (principal); I10 Essential (primary) hypertension; Z86.73 Personal history of transient ischemic attack (TIA), and cerebral infarction without residual deficits; Z87.891 Personal history of nicotine dependence; Z91.040 Latex allergy status

== ENCOUNTER → 2017-06-05 | Outpatient (CLI) | payer OTHER, MEDICAID | LOC: FIMAGING 16:39 | PROVIDERS: ATTEND Nurse Practitioner Adult Health | DX: M79.661 Pain in right lower leg (principal) ==

== ENCOUNTER 2018-02-28 15:13 | Emergency (ER) | payer OTHER, MEDICAID ==
--- NOTE | 2018-02-28 15:46 | EDPHY ---
H & P Stated Complaint: c/o ongoing gerd sx/intermittent sob x 3 days, gerd meds not helping Time Seen by Provider: 02/28/18 15:46 HPI/ROS: CHIEF COMPLAINT: Chest discomfort HISTORY OF PRESENT ILLNESS: The patient presents to the ED with complaints of chest discomfort for the past 3 days not relieved with Nexium. The patient states her symptoms are fairly typical of her acid reflux however not resolved. They are not precipitated by exertion or deep breaths. She has a history of some chronic abdominal pain from porphyria. Patient had a brief episode of right upper quadrant pain which resolved several hours ago. Patient denies any fever, cough or congestion. She denies any complaints of acute numbness or weakness. She states her symptoms are moderate in nature. REVIEW OF SYSTEMS: A comprehensive 10 point review of systems is otherwise negative aside from elements mentioned in the history of present illness. Source: Patient - Personal History Tetanus Vaccine Date: <10 years as of Jun 2014 - Medical/Surgical History Hx Asthma: No Hx Chronic Respiratory Disease: No Hx Diabetes: No Hx Cardiac Disease: Yes Hx Renal Disease: No Hx Cirrhosis: No Hx Alcoholism: No Hx HIV/AIDS: No Hx Splenectomy or Spleen Trauma: No Other PMH: fibromyalgia, appy, tonsilectomy, tubal ligation, sebaceous cyst removed, HTN, retinal bleeding rt eye, CVA, porphyria with neuropathy/CHRONIC PAIN, gerd, central/sleep apnea - Social History Smoking Status: Former smoker - Physical Exam Exam: General Appearance: Alert, no distress Eyes: Pupils equal and round no pallor or injection ENT, Mouth: Mucous membranes moist Respiratory: There are no retractions, lungs are clear to auscultation Cardiovascular: Regular rate and rhythm Gastrointestinal: Abdomen is soft and nontender, no masses, bowel sounds normal Neurological: 5/5 strength noted all 4 extremities Skin: Warm and dry, no rashes Musculoskeletal: Neck is supple nontender Extremities: symmetrical, full range of motion Constitutional: Initial Vital Signs Temperature (C) 36.7 C 02/28/18 15:33 Heart Rate 92 02/28/18 15:33 Respiratory Rate 18 02/28/18 15:33 Blood Pressure 161/91 H 02/28/18 15:33 O2 Sat (%) 93 02/28/18 15:33 O2 Delivery Mode Room Air Allergies/Adverse Reactions: alcohol [wine] Allergy (Severe, Verified 02/28/18 15:41) Swelling/neck,face,throat/ Hives Barbiturates Allergy (Severe, Verified 02/28/18 15:41) Other-Enter Comments fluoxetine HCl [From Prozac] Allergy (Severe, Verified 02/28/18 15:41) Hallucinations aspirin Allergy (Verified 02/28/18 15:41) GI Upset erythromycin base Allergy (Verified 02/28/18 15:41) Other-Enter Comments ibuprofen Allergy (Verified 02/28/18 15:41) GI Upset latex Allergy (Verified 02/28/18 15:41) Rash/Hives lisinopril Allergy (Verified 02/28/18 15:41) Unknown penicillin V potassium [From Pen-Vee K] Allergy (Verified 02/28/18 15:41) Hives Sulfa (Sulfonamide Antibiotics) Allergy (Verified 02/28/18 15:41) Unknown sweet potato Allergy (Verified 02/28/18 15:41) Home Medications: Medication Instructions Recorded Multivitamins [Multivitamin (*)] 1 each PO DAILY@52907/23/13 Promethazine HCl [Phenergan 25mg 25 mg PO Q6 PRN 06/29/14 (*)] Acetaminophen [Tylenol ES 500 mg 1,000 mg PO DAILY PRN 09/02/15 (*)] Fluticasone Nasal [Flonase Nasal 1 sprays EACHNARE HS PRN 09/02/15 [place]] Herbals/Supplements -Info Only 1 ea PO DAILY 09/02/15 Cyanocobalamin [Vitamin B12 (*)] 1,000 mcg PO DAILY 01/03/17 Esomeprazole Magnesium [Nexium] 20 mg PO DAILY@52901/03/17 HYDROmorphone HCL [Dilaudid 4 mg 4 mg PO DAILY PRN 01/03/17 (*)] Hydrochlorothiazide [HCTZ (*)] 25 mg PO DAILY@52901/03/17 oxyCODONE IR [Oxycodone Ir (*)] 10 mg PO Q6 PRN 01/03/17 Melatonin [Melatonin 3 MG (*)] 3 mg PO HS 09/24/17 Propylene Glycol/Peg 400/Pf 1 each OP HS 09/24/17 [Systane Ultra 0.4-0.3% Eye Drp] Tapentadol HCl [Nucynta ER] 150 mg PO Q12@0530,1730 09/24/17 Verapamil ER [Calan SR/ER 180MG 360 mg PO DAILY@1730 09/24/17 (*)] Polyethylene Glycol 3350 [Miralax 17 gm PO BID pkt 09/25/17 17 gm (*)] Medical Decision Making - Diagnostics EKG Interpretation: EKG: Complete interpretation has been separately recorded in the [employer] archive. Summary impression: Sinus rhythm rate 85, inferior Q-waves noted Imaging Results: Imaging Impressions Chest X-Ray 02/28/18 16:15 Impression: No acute cardiopulmonary process. Abdomen Ultrasound 02/28/18 16:33 Impression: Cholelithiasis without obvious obstruction. Results discussed with Dr. Joby Tian at 5:16 PM. ED Course/Re-evaluation: The patient presents to the ED with a 3 day history of anterior chest pain. The patient does feel she is experiencing a bad case of gastroesophageal reflux disease. The patient's initial EKG demonstrates no evidence of an injury pattern. The patient's troponin is negative. Patient did have a right upper quadrant ultrasound which demonstrates multiple small mobile gallstones without evidence of cholecystitis. The patient was given a GI cocktail in the emergency department. CBC, serum chemistries and lipase are noted to be within normal limits. Re-evaluated the patient at 5:30 p.m. And she states that her symptoms have entirely resolved after the GI cocktail. At this point time I will encourage the patient to continue her proton pump inhibitor and also use Maalox as needed for discomfort as I feel her symptoms are secondary to dyspepsia. The patient has been informed of the presence of small gallstones which are clinically asymptomatic at this point time. Differential Diagnosis: Differential diagnosis considered includes gastroesophageal reflux disease, peptic ulcer disease, pancreatitis, hepatitis, cholecystitis, acute coronary syndrome - Data Points Laboratory Results: Laboratory Results 02/28/18 15:50 02/28/18 15:50 02/28/18 02/28/18 02/28/18 15:56 15:50 15:50 WBC 7.89 10^3/uL 10^3/uL (3.80-9.50) RBC 5.00 10^6/uL 10^6/uL (4.18-5.33) Hgb 14.5 g/dL g/dL (12.6-16.3) Hct 43.4 % % (38.0-47.0) MCV 86.8 fL fL (81.5-99.8) MCH 29.0 pg pg (27.9-34.1) MCHC 33.4 g/dL g/dL (32.4-36.7) RDW 12.8 % % (11.5-15.2) Plt Count 235 10^3/uL 10^3/uL (150-400) MPV 12.3 fL H fL (8.7-11.7) Neut % (Auto) 41.1 % % (39.3-74.2) Lymph % (Auto) 47.9 % H % (15.0-45.0) [place] % (Auto) 7.6 % % (4.5-13.0) Eos % (Auto) 2.8 % % (0.6-7.6) Baso % (Auto) 0.5 % % (0.3-1.7) Nucleat RBC Rel Count 0.0 % % (0.0-0.2) Absolute Neuts (auto) 3.24 10^3/uL 10^3/uL (1.70-6.50) Absolute Lymphs (auto) 3.78 10^3/uL H 10^3/uL (1.00-3.00) Absolute Monos (auto) 0.60 10^3/uL 10^3/uL (0.30-0.80) Absolute Eos (auto) 0.22 10^3/uL 10^3/uL (0.03-0.40) Absolute Basos (auto) 0.04 10^3/uL 10^3/uL (0.02-0.10) Absolute Nucleated RBC 0.00 10^3/uL 10^3/uL (0-0.01) Immature Gran % 0.1 % % (0.0-1.1) Immature Gran # 0.01 10^3/uL 10^3/uL (0.00-0.10) Sodium 141 mEq/L mEq/L (135-145) Potassium 3.2 mEq/L L mEq/L (3.5-5.2) Chloride 102 mEq/L mEq/L (97-110) Carbon Dioxide 28 mEq/l mEq/l (22-31) Anion Gap 11 mEq/L mEq/L (6-14) BUN 30 mg/dL H mg/dL (7-23) Creatinine 1.4 mg/dL H mg/dL (0.6-1.0) Estimated GFR 37 Glucose 101 mg/dL H mg/dL (70-100) Calcium 9.6 mg/dL mg/dL (8.5-10.4) Total Bilirubin 0.4 mg/dL mg/dL (0.1-1.4) Conjugated Bilirubin 0.4 mg/dL mg/dL (0.0-0.5) Unconjugated Bilirubin 0.0 mg/dL mg/dL (0.0-1.1) AST 37 IU/L IU/L (14-46) ALT 28 IU/L IU/L (9-52) Alkaline Phosphatase 175 IU/L H IU/L (38-126) POC Troponin I 0.01 ng/mL ng/mL (0.00-0.08) Troponin I < 0.012 ng/mL ng/mL (0.000-0.034) Total Protein 7.3 g/dL g/dL (6.3-8.2) Albumin 4.3 g/dL g/dL (3.5-5.0) Lipase 132 IU/L IU/L (23-300) Medications Given: Discontinued Medications Al Hydroxide/Mg Hydroxide (Maalox Susp) 30 ml PO ONCE ONE Stop: 02/28/18 15:53 Last Admin: 02/28/18 15:58 Dose: 30 ml Hyoscyamine Sulfate (Levsin, Hyomax-Sl) 0.25 mg PO ONCE ONE Stop: 02/28/18 15:53 Last Admin: 18 15:58 Dose: 0.25 mg Lidocaine (Lidocaine 2% Viscous) 15 ml PO ONCE ONE Stop: 02/28/18 15:53 Last Admin: 02/28/18 15:58 Dose: 15 ml Point of Care Test Results: Chemistry 02/28/18 15:56 POC Troponin I 0.01 ng/mL ng/mL (0.00-0.08) Departure - Departure Disposition: Home, Routine, Self-Care Clinical Impression: Dyspepsia Condition: Good Instructions: Indigestion (ED) Additional Instructions: 1. The testing in the emergency department today does demonstrate multiple small gallstones without evidence of active gallbladder inflammation. Please return to the ED for any worsening pain in the right upper quadrant, intractable pain, fever or vomiting. 2. The remainder of your laboratory testing EKG are within normal limits. 3. Please follow-up with your primary care provider for a recheck in the next 1- 2 days. 4. Return to the ED for any markedly worsening symptoms or other concerns. 5. Please use Maalox in addition to your Nexium for your chest discomfort. Referrals: Mariaa Negrete MD [Primary Care Provider] - As per Instructions
[2018-02-28] MEDS ORDERED: HYOSCYAMINE SULFATE 0.125 MG TAB PO ONE (15:52)
[2018-02-28] MEDS ORDERED: LIDOCAINE 2% VISCOUS 15 ML UDCUP PO ONE (15:52)
[2018-02-28] MEDS ORDERED: MAG HYDROX/AL HYDROX/SIMETH 30 ML UDCUP PO ONE (15:52)
[2018-02-28 16:03] LABS: PLATELET COUNT 235 10^3/uL (150-400)
--- NOTE | 2018-02-28 16:20 | CPEKG ---
Test Reason : OPEN Blood Pressure : / mmHG Vent. Rate : 085 BPM Atrial Rate : 085 BPM P-R Int : 141 ms QRS Dur : 094 ms QT Int : 379 ms P-R-T Axes : 077 -30 043 degrees QTc Int : 451 ms Sinus rhythm Inferior infarct, old Confirmed by Ron Tian ([id number]) on 02/28/2018 4:19:52 PM Referred By: Confirmed By:Ron Tian
[2018-02-28 17:45] VITALS: BP 141/108
== END 2018-02-28 17:43 | disposition home or self-care (01) ==
DX: R10.13 Epigastric pain (principal); R07.89 Other chest pain; I10 Essential (primary) hypertension; Z86.73 Personal history of transient ischemic attack (TIA), and cerebral infarction without residual deficits
CPT/HCPCS: 84484-ER

== ENCOUNTER 2018-03-05 14:14 | Inpatient (IN) | payer OTHER, MEDICAID ==
--- NOTE | 2018-03-05 14:50 | EDPHY ---
H & P Stated Complaint: INDIGESTION Time Seen by Provider: 03/05/18 14:49 HPI/ROS: CHIEF COMPLAINT: "Indigestion" HISTORY OF PRESENT ILLNESS: The patient is a 73 y/o female with a history of porphyria, GERD, and fibromyalgia returning for the second time in five days complaining of persistent indigestion symptoms. She was seen here on 02/28/18 for similar, less severe abdominal pain and reflux. An EKG and chest x-ray were negative for acute findings and an abdominal US showed gallstones without signs of acute cholecystitis. Her symptoms improved with a GI cocktail, but recurred shortly after returning home and have been persistent since then. Symptoms are unimproved with Maalox or Nexium. She reports she has only been able to eat a single cup of cream of rice per day for the last 4 days due to significant pain when eating anything. She currently has abdominal pain underneath her right rib cage. She denies diarrhea, fever, vomiting today. Upon assessment, she states a porphyria attack began a few minutes ago typical of prior attacks. She complains of her typical right-sided pain and weakness of her right arm. Her baseline abdominal pain that feels like it "always has a hot coal in it" "just gets hotter" during her attacks. REVIEW OF SYSTEMS: A ten system review of systems was performed and is negative with the exception of the items mentioned in the HPI. Past medical history: Hypertension, porphyria, GERD, fibromyalgia followed by [facility] - Nucynta ER 50mg BID and Oxycodone 3-4x daily PRN and Dilaudid for breakthrough pain Past surgical history: Noncontributory Family history: Noncontributory Social history: Lives at [facility]. 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 PCP: Dr. Negrete. Reviewed prior records including admission for porphyria attack on 09/24/17 and reflux symptoms on 02/28/18. General Appearance: Alert. Vital signs reviewed. Eyes: Pupils equal and round, no conjunctival injection, no discharge. Anicteric. ENT, Mouth: Mucous membranes are dry, no oropharyngeal erythema or edema. Neck: No lymphadenopathy, supple. Respiratory: Lungs are clear to auscultation; no wheezes, rales, or rhonchi. Cardiovascular: Regular rate and rhythm; no murmur, rub, or gallop. Gastrointestinal: Abdomen is soft and mildly diffusely tender with some mild tenderness RUQ, no peritoneal signs, no masses or organomegaly. Skin: Warm and dry, no rashes on exposed skin, normal color. Back: Nontender to palpation over the thoracolumbar spine. No CVAT. Extremities: No lower extremity edema, no calf tenderness or swelling. Neurological: Alert and oriented. Right wrist contracted, otherwise moving all four extremities easily and equally. Psychiatric: Normal affect. - Personal History Current Tetanus/Diphtheria Vaccine: Yes Tetanus Vaccine Date: <10 years as of Jun 2014 - Medical/Surgical History Hx Asthma: No Hx Chronic Respiratory Disease: No Hx Diabetes: No Hx Cardiac Disease: Yes Hx Renal Disease: No Hx Cirrhosis: No Hx Alcoholism: No Hx HIV/AIDS: No Hx Splenectomy or Spleen Trauma: No Other PMH: fibromyalgia, appy, tonsilectomy, tubal ligation, sebaceous cyst removed, HTN, retinal bleeding rt eye, CVA, porphyria with neuropathy/CHRONIC PAIN, gerd, central/sleep apnea - Social History Smoking Status: Former smoker Constitutional: Initial Vital Signs Temperature (C) 36.6 C 03/05/18 14:18 Heart Rate 93 03/05/18 14:18 Respiratory Rate 16 03/05/18 14:18 Blood Pressure 142/97 H 03/05/18 14:18 O2 Sat (%) 99 03/05/18 14:18 O2 Delivery Mode Room Air O2 (L/minute) 2 Allergies/Adverse Reactions: alcohol [wine] Allergy (Severe, Verified 02/28/18 15:41) Swelling/neck,face,throat/ Hives Barbiturates Allergy (Severe, Verified 02/28/18 15:41) Other-Enter Comments fluoxetine HCl [From Prozac] Allergy (Severe, Verified 02/28/18 15:41) Hallucinations aspirin Allergy (Verified 02/28/18 15:41) GI Upset erythromycin base Allergy (Verified 02/28/18 15:41) Other-Enter Comments ibuprofen Allergy (Verified 02/28/18 15:41) GI Upset latex Allergy (Verified 02/28/18 15:41) Rash/Hives lisinopril Allergy (Verified 02/28/18 15:41) Unknown penicillin V potassium [From Pen-Vee K] Allergy (Verified 02/28/18 15:41) Hives Sulfa (Sulfonamide Antibiotics) Allergy (Verified 02/28/18 15:41) Unknown sweet potato Allergy (Verified 02/28/18 15:41) Home Medications: Medication Instructions Recorded Multivitamins [Multivitamin (*)] 1 each PO DAILY@0530 07/23/13 Promethazine HCl [Phenergan 25mg 25 mg PO Q6 PRN 06/29/14 (*)] Acetaminophen [Tylenol ES 500 mg 1,000 mg PO DAILY PRN 09/02/15 (*)] Fluticasone Nasal [Flonase Nasal 1 sprays EACHNARE HS PRN 09/02/15 [place]] Herbals/Supplements -Info Only 1 ea PO DAILY 09/02/15 Cyanocobalamin [Vitamin B12 (*)] 1,000 mcg PO DAILY 01/03/17 HYDROmorphone HCL [Dilaudid 4 mg 4 mg PO DAILY PRN 01/03/17 (*)] Hydrochlorothiazide [HCTZ (*)] 25 mg PO DAILY@1730 01/03/17 oxyCODONE IR [Oxycodone Ir (*)] 10 mg PO Q6 PRN 01/03/17 Melatonin [Melatonin 3 MG (*)] 3 mg PO HS 09/24/17 Verapamil ER [Calan SR/ER 180MG 360 mg PO DAILY@1730 09/24/17 (*)] DULoxetine [Cymbalta 30 MG (*)] 30 mg PO DAILY@1730 03/05/18 Tapentadol HCl [Nucynta ER] 50 mg PO Q12@0530,1730 MDD y 03/05/18 Esomeprazole Magnesium [Nexium] 40 mg PO DAILY@0530 #0 03/08/18 Sucralfate [Carafate 1gm/10ml Oral 1 gm PO ACHS #420 ml 03/08/18 Liquid (*)] Medical Decision Making ED Course/Re-evaluation: This is a 73 y/o female with a history of chronic pain and porphyria who presents with recurrent symptoms of indigestion as well as porphyria attacks. Plan for IV, labs, GI cocktail, D10 infusion. She has taken her PPI today but might require adjustment of this medication to control her GERD symptoms. She has RUQ tenderness on exam, noted before. She is known to have gall stones , doubt acute cholecystitis today but will keep this inm the differential as her work up progresses. The 12 lead EKG was interpreted by myself. Sinus tachycardia, rate 104. See hard copy and/or "tracemaster" electronic copy for interpretation. I do not think that today's presentation is indicative of ACS. 1629: Reassessed patient. She is feeling much better after the GI cocktail and her pain from her porphyria has improved slightly. She appears more relaxed and wants to try to eat something. However, she will require admission for continued treatment and control of her symptoms. Spoke with hospitalist service. Dr. Zhang accepts admission. Differential Diagnosis: DDX includes but is not limited to ACS, acute cholecystitis, ascending cholangitis, porphyria exacerbation, GERD, PUD. - Data Points Laboratory Results: Laboratory Results 03/06/18 04:28 03/06/18 04:28 Medications Given: Discontinued Medications Al Hydroxide/Mg Hydroxide (Maalox Susp) 30 ml PO ONCE ONE Stop: 03/05/18 15:13 Last Admin: 03/05/18 15:26 Dose: 30 ml Duloxetine HCl (Cymbalta) 30 mg PO DAILY@1730 [facility] Stop: 09/02/18 17:29 Last Admin: 03/07/18 17:15 Dose: 30 mg Enoxaparin Sodium (Lovenox) 40 mg SC DAILY [facility] Stop: 09/02/18 08:59 Last Admin: 03/08/18 09:52 Dose: 40 mg Hydrochlorothiazide (Hydrochlorothiazide) 25 mg PO DAILY@1730 [facility] Stop: 09/02/18 17:29 Last Admin: 03/07/18 17:15 Dose: 25 mg Hydromorphone HCl (Dilaudid) 0.2 - 0.4 mg IVP Q4HRS PRN PRN Reason: Pain, Severe Unable to Take PO Stop: 03/15/18 17:33 Last Admin: 03/05/18 17:53 Dose: 0.4 mg Hydromorphone HCl (Dilaudid) 4 mg PO DAILY PRN PRN Reason: Pain, Severe Able to Take PO Stop: 03/15/18 17:43 Last Admin: 03/08/18 02:14 Dose: 4 mg Hyoscyamine Sulfate (Levsin, Hyomax-Sl) 0.25 mg PO ONCE ONE Stop: 03/05/18 15:13 Last Admin: 03/05/18 15:26 Dose: 0.25 mg Dextrose (D10w) 1,000 mls @ 150 mls/hr IV CONT [facility] Stop: 09/01/18 15:14 Last Admin: 03/05/18 15:36 Dose: 1,000 mls Dextrose (D10w) 1,000 mls @ 50 mls/hr IV CONT [facility] Stop: 09/01/18 17:44 Last Admin: 03/06/18 07:52 Dose: 1,000 mls Potassium Chloride/Dextrose/Sod Cl (D5w Ns W/ 20 Kcl/L) 1,000 mls @ 100 mls/hr IV CONT [facility] Stop: 09/03/18 09:29 Last Admin: 03/07/18 23:24 Dose: 1,000 mls Lidocaine (Lidocaine 2% Viscous) 15 ml PO ONCE ONE Stop: 03/05/18 15:13 Last Admin: 03/05/18 15:26 Dose: 15 ml Melatonin (Melatonin) 3 mg PO HS [facility] Stop: 09/01/18 20:59 Last Admin: 03/07/18 21:08 Dose: 3 mg Miscellaneous Medication (Tapentadol Hcl [Nucynta Er]) 50 mg PO Q12@0530,1730 [facility] Stop: 09/02/18 05:29 Last Admin: 03/06/18 06:12 Dose: Not Given Multivitamins (Tab-A-Nkechi) 1 each PO DAILY@0530 [facility] Stop: 09/02/18 05:29 Last Admin: 03/08/18 05:53 Dose: 1 each Ondansetron HCl (Zofran Odt) 4 mg PO Q4HRS PRN PRN Reason: Nausea/Vomiting, Use 1st Stop: 09/01/18 17:33 Last Admin: 03/08/18 02:14 Dose: 4 mg Oxycodone HCl (Oxycodone Ir) 10 mg PO Q6 PRN PRN Reason: Pain, Breakthrough Stop: 03/15/18 17:43 Last Admin: 03/08/18 07:34 Dose: 10 mg Pantoprazole Sodium (Protonix) 40 mg IVP BID [facility] Stop: 09/01/18 17:32 Last Admin: 03/07/18 10:45 Dose: 40 mg Pantoprazole Sodium (Protonix) 40 mg PO BID MARYSE Stop: 09/03/18 20:59 Last Admin: 03/08/18 09:52 Dose: 40 mg Potassium Chloride (Klor-Con) 40 meq PO ONCE ONE Stop: 03/08/18 02:44 Last Admin: 03/08/18 03:00 Dose: 40 meq Sucralfate (Carafate Suspension) 1 gm PO ACHS MARYSE Stop: 09/01/18 20:59 Last Admin: 03/08/18 07:35 Dose: 1 gm Tapentadol (Nucynta) 50 mg PO BID@0530,1730 [facility] Stop: 03/16/18 10:44 Last Admin: 03/07/18 20:57 Dose: 50 mg Verapamil HCl (Calan Sr) 360 mg PO DAILY@1730 [facility] Stop: 09/02/18 17:29 Last Admin: 03/07/18 17:17 Dose: 360 mg Vitamin B Complex (Vitamin B12) 1,000 mcg PO DAILY [facility] Stop: 09/02/18 08:59 Last Admin: 03/08/18 09:52 Dose: 1,000 mcg Point of Care Test Results: Chemistry 03/05/18 15:27 POC Troponin I 0.01 ng/mL ng/mL (0.00-0.08) Departure - Departure Disposition: [facility] Inpatient Acute Clinical Impression: Porphyria Qualifiers: Porphyria type: acute intermittent Qualified Code(s): E80.21 - Acute intermittent (hepatic) porphyria GERD (gastroesophageal reflux disease) Qualifiers: Esophagitis presence: esophagitis presence not specified Qualified Code(s): K21.9 - Gastro-esophageal reflux disease without esophagitis Condition: Good Report Scribed for: Bettye Elizondo Report Scribed by: Beverly Ignacio Date of Report: 03/05/18 Time of Report: 14:54 Physician Review and Approval Statement: 03/05/18 14:50 Portions of this note were transcribed by the director of medical education. I, Dr. Bettye Elizondo, personally performed the history, physical exam, and medical decision- making; and confirmed the accuracy of the information in the transcribed note.
--- NOTE | 2018-03-05 15:06 | CPEKG ---
Test Reason : OPEN Blood Pressure : / mmHG Vent. Rate : 104 BPM Atrial Rate : 104 BPM P-R Int : 148 ms QRS Dur : 084 ms QT Int : 345 ms P-R-T Axes : 067 -44 020 degrees QTc Int : 454 ms Sinus tachycardia Probable left atrial enlargement Inferior infarct, old Confirmed by Aleks Moralez ([id number]) on 03/05/2018 3:06:10 PM Referred By: Confirmed By:Aleks Moralez
[2018-03-05] MEDS ORDERED: MAG HYDROX/AL HYDROX/SIMETH 30 ML UDCUP PO ONE (15:12)
[2018-03-05] MEDS ORDERED: LIDOCAINE 2% VISCOUS 15 ML UDCUP PO ONE (15:12)
[2018-03-05] MEDS ORDERED: HYOSCYAMINE SULFATE 0.125 MG TAB PO ONE (15:12)
[2018-03-05] MEDS ORDERED: D10W 1,000 ML IV SCH (15:15)
[2018-03-05 15:18] LABS: PLATELET COUNT 262 10^3/uL (150-400)
[2018-03-05] MEDS ORDERED: MBX SOLN 30 ML BOTTLE PO PRN (17:33)
[2018-03-05] MEDS ORDERED: HYDROmorphONE/DILAUDID 1 MG/ML INJ IVP PRN (17:34)
[2018-03-05] MEDS ORDERED: ACETAMINOPHEN 325 MG TAB PO PRN (17:34)
[2018-03-05] MEDS ORDERED: ONDANSETRON 4 MG/2 ML VIAL IVP PRN (17:34)
[2018-03-05] MEDS: D10W 1,000 ML IV SCH (17:35)
[2018-03-05] MEDS ORDERED: FLUTICASONE NASAL 120 SPRAYS/16 GM MDI EACHNARE PRN (17:44)
--- NOTE | 2018-03-05 18:13 | GHP ---
DATE OF ADMISSION: 03/05/2018 HISTORY OF PRESENT ILLNESS: The patient is a 73-year-old female with history of likely acute intermi ttent porphyria with periodic abdominal pain as well as fibromyalgia and reflux. She presents with s everal days of increasing reflux symptoms as well as subsequent porphyria symptoms. It sounds like t he management of her porphyria symptoms is somewhat dependent on a diet of carbohydrates. She has be en eating poorly from her reflux. She does have a history of what sounds like a Kole fundoplicatio n done years ago. She had been taking a PPI and was taking [id number] omeprazole just 20 mg be cause of cost. She had previously been taking 40. That said, that change was made over a year ago. She denies recent spicy foods, alcohol, NSAIDs, fatty foods, or other triggers. She is not having fever, chills, nausea, vomiting. Her last bowel movement was this morning. She no scott she occasionally has some right upper quadrant pain which is different from her typical pain. In the past, she has had abdominal imaging showing a cholelithiasis without evidence of cholecystitis. She has had an elevated alkaline phosphatase in the past. REVIEW OF SYSTEMS: Complete 10-point review of systems conducted and negative except as noted in the HPI. PAST MEDICAL HISTORY: 1. Likely acute intermittent porphyria. 2. Fibromyalgia. 3. Reflux with a history of surgical intervention, hypertension, potential sleep apnea with nocturna l hypoxemic respiratory failure and obesity. SOCIAL HISTORY: No alcohol. Quit tobacco March of 1993. Lives in [facility]. FAMILY HISTORY: Notable for porphyria in her mother and grandmother. ALLERGIES: Alcohol, barbiturates, fluoxetine, aspirin, erythromycin, ibuprofen, latex, lisinopril, p enicillin, sulfa, and sweet potatoes. HOME MEDICATIONS: Acetaminophen, cyanocobalamin, duloxetine, esomeprazole 20 mg, Flonase, hydrochlor othiazide, hydromorphone 4 mg daily, melatonin, multivitamin, oxycodone 10 q.6, Phenergan, tapentadol (Nucynta), and verapamil. PHYSICAL EXAMINATION: VITAL SIGNS: Temp 36.6, blood pressure 142/97, pulse 93, breathing 16 times a minute, 90% on room air. GENERAL: In no acute distress. HEENT: Sclerae anicteric. Oropharynx cl ear. Mucous membranes moist. NECK: Supple without lymphadenopathy or JVD. LUNGS: Clear to auscul tation bilaterally. HEART: S1, S2. ABDOMEN: Soft, nontender, nondistended. There is no Gold si gn. There is no rebound or guarding. LOWER EXTREMITIES: Without edema. Calves nontender. SKIN: Without rash. NEUROLOGIC: Nonfocal. LABS: White count 9, hematocrit 50, which is up from a baseline of 42. Platelets are 216,000. Sodi um 138, potassium 4.2, chloride 100, bicarb 25, BUN 26, creatinine 1.3. These are greater than basel ine. Glucose 117. LFTs are normal other than alk phosphatase at 205. It was 182 over the summer. I t had been chronically elevated as high as 500 four years ago. Troponin 0.01. TEST DATA: EKG interpreted by me shows sinus tach at 104 with left axis deviation and no ST or T-wav e changes. There looks like there may be about a millimeter of ST depression in lead II alone with n o changes seen elsewhere either in the inferior leads and there is also about 0.[address] depression in V3. I discussed the case with Dr. Scout Barrow. ASSESSMENT/PLAN: A 73-year-old female with abdominal pain, acute intermittent porphyria. 1. Acute intermittent porphyria. Will admit. IV Dilaudid. Will continue her p.o. narcotics and gi ve her a D10 drip. 2. Reflux. This is severe. I will put her on a b.i.d. IV PPI, MBX solution, and sucralfate. She ne eds to take a b.i.d. PPI, a full strength dose, not a half dose. 3. EKG changes. These are mild. Her troponin was negative. I think her symptoms are largely consi stent with her previous porphyria. We can repeat a troponin in the morning, low suspicion for cardia c etiology of this. 4. Question cholecystitis. I think at this point, the patient has known cholelithiasis and a modest ly elevated alkaline phosphatase without a Gold sign. Will not provide further imaging. Prophylax is with low molecular heparin. DISPOSITION: Observation status. /[id number]/MODL
[2018-03-05] MEDS: PANTOPRAZOLE SODIUM 40 MG VIAL IVP SCH ×2 (18:34→21:09)
[2018-03-05] MEDS: oxyCODONE IR 5 MG TAB PO PRN (20:01)
[2018-03-05] MEDS: SUCRALFATE 1 GM/10 ML UDCUP PO SCH (21:09)
[2018-03-05] MEDS: MELATONIN 3 MG TAB PO SCH (21:15)
[2018-03-06] MEDS: oxyCODONE IR 5 MG TAB PO PRN ×2 (02:53→18:58)
[2018-03-06] MEDS: ONDANSETRON DISINTEGRATING 4 MG TAB PO PRN (02:53)
[2018-03-06] MEDS ORDERED: PROMETHAZINE HCL 25 MG/ML INJ IVP PRN (04:31)
[2018-03-06 05:11] LABS: PLATELET COUNT 197 10^3/uL (150-400)
[2018-03-06] MEDS ORDERED: TAPENTADOL HCL 50 MG PO SCH (05:30)
[2018-03-06] MEDS: MULTIVITAMINS 1 EACH TAB PO SCH (06:12)
[2018-03-06] MEDS: D10W 1,000 ML IV SCH (07:52)
[2018-03-06] MEDS: SUCRALFATE 1 GM/10 ML UDCUP PO SCH ×4 (07:53→20:40)
[2018-03-06] MEDS ORDERED: Herbals/Supplements -Info Only PO SCH (09:00)
[2018-03-06] MEDS: PANTOPRAZOLE SODIUM 40 MG VIAL IVP SCH ×2 (09:27→20:40)
[2018-03-06] MEDS: ENOXAPARIN 40 MG/0.4 ML SYR SC SCH (09:35)
[2018-03-06] MEDS: HYDROmorphONE/DILAUDID 4 MG TAB PO PRN (09:42)
[2018-03-06] MEDS: TAPENTADOL HCL 50 MG TAB PO SCH ×2 (10:47→18:18)
--- NOTE | 2018-03-06 14:14 | ASMTCMCOM ---
CM Note CM Note Notes: Pt in for GERD, porphyria exacerbation, here in ED 02/28/18 for similar symptoms. No therapies ordered. Chart indicates pt resides at [place], [place] unknown Anticipate pt will d/c when medically stable. CM available for changes/needs. Date Signed: 03/06/2018 02:13 PM Electronically Signed By:GERARDO Holt
--- NOTE | 2018-03-06 14:15 | HOSPPROG ---
Hospitalist Progress Note Assessment/Plan: 73yo F with acute intermittent porphyria here with worsening of her classic porphyria symptoms due to inability to eat 2/2 severe reflux. 1. Epigastric pain: C/w esophageal etiology. H/o fundoplication in 2016 (Dr Bansal). - Continue IV PPI BID, carafate, maalox - If not better in AM, will consult GI for EGD - Check H pylori 2. Flare of AIP: Due to inability to tolerate PO. Manifested as lower abd pain and right hand weakness. Improving. - Cont D10, PO opioids 3. Elevated alk phos: Improving. Known cholelithiasis but clinically doesn't have cholecystitis. Hold on imaging. 4. LYLY: Cr a bit up. Suspect prerenal/dehydration. - Monitor with IVF 5. Chronic pain: Home meds VTE ppx: LMWH Code: full Dispo: Switch to inpatient, unsafe to dc as not tolerating PO Subjective: Not really eating. Epigastric pain. Porphyria sxs improving. Objective: Vital Signs Temp Pulse Resp BP Pulse Ox 36.8 C 80 18 125/77 H 95 03/06/18 12:00 03/06/18 12:00 03/06/18 12:00 03/06/18 12:00 03/06/18 12:00 Laboratory Results 03/06/18 04:28 03/06/18 04:28 03/05/18 03/06/18 03/07/18 05:59 05:59 05:59 Intake Total 869 873 Output Total 0 Balance 869 873 - Physical Exam Constitutional: no apparent distress, appears nourished, not in pain Eyes: PERRL, anicteric sclera, EOMI Ears, Nose, Mouth, Throat: moist mucous membranes, hearing normal, ears appear normal, no oral mucosal ulcers Cardiovascular: regular rate and rhythym, no murmur, rub, or gallop Respiratory: no respiratory distress, no rales or rhonchi, clear to auscultation Gastrointestinal: no palpable masses, tenderness (epigastric), No guarding, No distension Genitourinary: no bladder fullness, no bladder tenderness, no renal bruits Skin: no rashes or abrasions, no fluctuance, no induration Musculoskeletal: other (right hand weakness) Neurologic: AAOx3 Psychiatric: interacting appropriately, not anxious, not encephalopathic, thought process linear ICD10 Worksheet Patient Problems: Problems Problem Status Onset GERD (gastroesophageal reflux disease) Acute Porphyria Acute Right arm weakness Acute Right leg weakness Acute
[2018-03-06] MEDS: DULoxetine 30 MG CAP PO SCH (18:18)
[2018-03-06] MEDS: CYANO/VITAMIN B12 1000 MCG TAB PO SCH (19:44)
[2018-03-06] MEDS: HYDROCHLOROTHIAZIDE 25 MG TAB PO SCH (22:19)
[2018-03-06] MEDS: VERAPAMIL ER 180 MG TAB PO SCH (22:19)
[2018-03-06] MEDS: MELATONIN 3 MG TAB PO SCH (22:38)
[2018-03-07] MEDS: TAPENTADOL HCL 50 MG TAB PO SCH ×4 (05:08→20:57)
[2018-03-07] MEDS: oxyCODONE IR 5 MG TAB PO PRN ×2 (05:08→17:15)
--- NOTE | 2018-03-07 07:27 | PDMN ---
Medical Necessity Medical necessity: [facility] systemic condition: acute intermittent porphyria- status changed to INPT 03/06/18 for ongoing epigastric pain, inability to tolerate PO, further monitoring and tx needed. IVF, IV protonix, IV pain, IV antiemetics, > 2 MN of med nec care.
--- NOTE | 2018-03-07 09:21 | HOSPPROG ---
Hospitalist Progress Note Assessment/Plan: 73yo F with acute intermittent porphyria here with worsening of her classic porphyria symptoms due to inability to eat 2/2 severe reflux. 1. Epigastric pain: Improving. C/w esophageal etiology. H/o fundoplication in 2016 (Dr Bansal). H pylori negative. - Continue IV PPI BID, carafate, maalox - Advance diet as able - If doing better this PM, will switch to PO PPI - Hold on involving GI 2. Flare of AIP: Resolving. Due to inability to tolerate PO. Manifested as lower abd pain and right hand weakness. - Discontinue D10, switch to D5 NS w/KCl 3. Hypokalemia: 2/2 poor PO - KCl in IV fluids, replacement protocol 4. Elevated alk phos: Improving. Known cholelithiasis but clinically doesn't have cholecystitis. Hold on imaging. 5. LYLY: Cr a bit up. Suspect prerenal/dehydration - Switching to isotonic fluids as above, monitor daily 5. Chronic pain: Home meds VTE ppx: LMWH Code: full Dispo: Remain inpatient until tolerating PO, ADD pending clinical course Subjective: Ate some chex and crackers last night. Had a few bites of toast this AM. Overall epigastric pain much better. Hand symptoms resolved. Objective: Vital Signs Temp Pulse Resp BP Pulse Ox 36.8 C 55 L 16 98/54 L 97 03/07/18 07:49 03/07/18 07:49 03/07/18 07:49 03/07/18 07:49 03/07/18 07:49 Laboratory Results 03/07/18 04:25 03/06/18 03/07/18 03/08/18 05:59 05:59 05:59 Intake Total 2049 Output Total 2 Balance 2047 - Physical Exam Constitutional: no apparent distress, appears nourished, not in pain Eyes: PERRL, anicteric sclera, EOMI Ears, Nose, Mouth, Throat: moist mucous membranes, hearing normal, ears appear normal, no oral mucosal ulcers Cardiovascular: regular rate and rhythym, no murmur, rub, or gallop Respiratory: no respiratory distress, no rales or rhonchi, clear to auscultation Gastrointestinal: normoactive bowel sounds, tenderness (improved), No guarding, No distension Genitourinary: no bladder fullness, no bladder tenderness, no renal bruits Skin: no rashes or abrasions, no fluctuance, no induration Musculoskeletal: full muscle strength, no muscle tenderness, normal joint ROM Neurologic: AAOx3, sensation intact bilaterally Psychiatric: interacting appropriately, not anxious, not encephalopathic, thought process linear ICD10 Worksheet Patient Problems: Problems Problem Status Onset GERD (gastroesophageal reflux disease) Acute Porphyria Acute Right arm weakness Acute Right leg weakness Acute
[2018-03-07] MEDS ORDERED: D5W NS W/ 20 KCl/L 1,000 ML IV SCH (09:30)
[2018-03-07] MEDS: CYANO/VITAMIN B12 1000 MCG TAB PO SCH (10:33)
[2018-03-07] MEDS: ENOXAPARIN 40 MG/0.4 ML SYR SC SCH (10:33)
[2018-03-07] MEDS: SUCRALFATE 1 GM/10 ML UDCUP PO SCH ×4 (10:34→21:08)
[2018-03-07] MEDS: PANTOPRAZOLE SODIUM 40 MG VIAL IVP SCH (10:45)
--- NOTE | 2018-03-07 11:38 | ASMTCMCOM ---
CM Note CM Note Notes: Patient plan of care reviewed in am rounds. 73 year old female admitted with gastrointestinal issues. Normally live at [facility]. No current needs anticipated at this time. CM available should needs arise. Plan: Dc to home at [facility] when medically cleared. Date Signed: 03/07/2018 11:38 AM Electronically Signed By:Evelyn Burden RN
[2018-03-07] MEDS: DULoxetine 30 MG CAP PO SCH (17:15)
[2018-03-07] MEDS: HYDROCHLOROTHIAZIDE 25 MG TAB PO SCH (17:15)
[2018-03-07] MEDS: VERAPAMIL ER 180 MG TAB PO SCH (17:17)
[2018-03-07] MEDS: MULTIVITAMINS 1 EACH TAB PO SCH (18:38)
[2018-03-07] MEDS: PANTOPRAZOLE SODIUM 40 MG TAB PO SCH (21:08)
[2018-03-07] MEDS: MELATONIN 3 MG TAB PO SCH (21:08)
[2018-03-08] MEDS: HYDROmorphONE/DILAUDID 4 MG TAB PO PRN (02:14)
[2018-03-08] MEDS: ONDANSETRON DISINTEGRATING 4 MG TAB PO PRN (02:14)
[2018-03-08] MEDS ORDERED: POTASSIUM CL 20 MEQ TAB PO ONE (02:43)
[2018-03-08] MEDS: MULTIVITAMINS 1 EACH TAB PO SCH (05:53)
[2018-03-08] MEDS: oxyCODONE IR 5 MG TAB PO PRN (07:34)
[2018-03-08] MEDS: SUCRALFATE 1 GM/10 ML UDCUP PO SCH (07:35)
[2018-03-08] MEDS: ENOXAPARIN 40 MG/0.4 ML SYR SC SCH (09:52)
[2018-03-08] MEDS: PANTOPRAZOLE SODIUM 40 MG TAB PO SCH (09:52)
[2018-03-08] MEDS: CYANO/VITAMIN B12 1000 MCG TAB PO SCH (09:52)
[2018-03-08 10:14] VITALS: BP 108/57
--- NOTE | 2018-03-08 12:57 | ASMTLACE ---
LUANNE Length of stay for Answers: 1 day current admission Acuity / Level of Answers: No Care: Did the patient have an inpatient admission? Comorbidities - select Answers: Other Notes: Fibromyalgia all that apply # of Emergency department Answers: 3-4 visits in the last 6 months Score: 5 Date Signed: 03/08/2018 12:56 PM Electronically Signed By:Evelyn Burden RN
--- NOTE | 2018-03-08 13:02 | ASMTDCNOTE ---
Case Management Discharge Discharge Order Complete? Answers: Yes Patient to Obtain Answers: Independently Medications Transportation Arranged Answers: Family/Friends Family Notified Answers: Yes Discharge Comments Notes: Medically cleared for discharge to home. She resides at [facility]. Has a friend to provide transportation. No current needs. Date Signed: 03/08/2018 01:02 PM Electronically Signed By:Evelyn Burden RN
== END 2018-03-08 13:54 | disposition home or self-care (01) | DRG 642 ==
LOC: EDUNIT# → F1N 18:11 → OBSVTOIN 03-06 16:52
PROVIDERS: ADMIT Internal Medicine; ATTEND Internal Medicine
DX: E80.21 Acute intermittent (hepatic) porphyria (principal); N17.9 Acute kidney failure, unspecified; K21.9 Gastro-esophageal reflux disease without esophagitis; E86.0 Dehydration; E87.6 Hypokalemia; G47.31 Primary central sleep apnea; M79.7 Fibromyalgia; I10 Essential (primary) hypertension; E66.9 Obesity, unspecified
CPT/HCPCS: 84484-PO; G0378; J1170; J1650; J2550